=== PATIENT | male | born 1970 | race Caucasian/White ===

== ENCOUNTER 2022-12-29 21:24 | Emergency (ER) | payer OTHER, BC ==
[2022-12-29] MEDS ORDERED: Lidocaine 1% w/Epinephrine 1:100K 20 ML VIAL ONE (21:37)
[2022-12-29] MEDS ORDERED: Boostrix 0.5 ML (Tdap) VIAL (>/=7 yrs of age) ONE (21:37)
[2022-12-29] MEDS ORDERED: Bacitracin 1 PK ONE (22:07)
[2022-12-29] MEDS ORDERED: hydrALAZINE 20 MG/ML VIAL ONE (22:08)
== END 2022-12-29 22:35 | disposition home or self-care (01) ==
LOC: NAV ERS 21:24
DX: S01.81XA Laceration without foreign body of other part of head, initial encounter (principal); E78.5 Hyperlipidemia, unspecified; W01.198A Fall on same level from slipping, tripping and stumbling with subsequent striking against other object, initial encounter; Z79.899 Other long term (current) drug therapy; Z23 Encounter for immunization
CPT/HCPCS: 12013; 90471; 90715; J0360

== ENCOUNTER 2023-01-04 17:50 | Emergency (ER) | payer BC | END 2023-01-04 18:15 | disposition home or self-care (01) | LOC: NAV ERS 17:50 | DX: S01.01XD Laceration without foreign body of scalp, subsequent encounter (principal); E78.5 Hyperlipidemia, unspecified; Z79.899 Other long term (current) drug therapy; X58.XXXD Exposure to other specified factors, subsequent encounter ==